=== PATIENT | female | born 1995 | race African-American/Black ===

== ENCOUNTER 2022-07-14 17:57 | Emergency (ER) | payer MEDICAID ==
[~2022-07-14] VITALS: Ht 167.6 cm; Wt 89.0 kg
[2022-07-14 18:19] VITALS: BP 106/68
== END 2022-07-14 22:42 | disposition left against medical advice (07) ==
LOC: ER 17:57
DX: Z53.21 Procedure and treatment not carried out due to patient leaving prior to being seen by health care provider (principal)